=== PATIENT | male | born 1950 ===

== ENCOUNTER → 2017-04-16 | Outpatient (CLI) | payer MEDICARE ==
--- NOTE | 2017-04-16 19:39 | CONS ---
CONSULTATION Consultation done for sleep apnea. 66-year-old male patient, obese with a previous history of obstructive sleep apnea based on a study that was done at [facility] more than 5 years ago. The patient is being seen by Dr. Galvan regarding chronic pulmonary problems and he was asked to [facility] to be evaluated for his obstructive sleep apnea and see if his treatment is satisfactory and adequate. Of note, the patient has chronic hypoxic respiratory failure due to COPD and he has also a chronic right hemidiaphragmatic paralysis and he has a large abdominal/ventral hernias which have evolved after a major abdominal surgery for colonic perforation. In terms of his sleep apnea, the patient has been utilizing CPAP therapy for 5 years. Unfortunately sleep quality has been poor. He starts of sleeping in bed and he goes to bed around 11 o'clock and wakes up around 2 and goes to the living room where he sleeps in his recliner. While on the recliner, the patient does not utilize a CPAP machine. He uses CPAP machine only in bed. Based on the compliancy data that was available on his CPAP machine, he has been averaging around 2-1/2 hours of CPAP use per night. His pressure is at 16. His AHI is down to 3 while on treatment. He has around 16% large leaks around his Quattro FX full face mask. His current Sanders score is at 8. He seems to average around 5-6 hours of sleep and this is largely varies. He says sleep is very much fragmented. He admits to uses the CPAP between 2-3 hours on a nightly basis. He snores and at times he has been noted to quit breathing. He is more comfortable while sleeping on the recliner. He has very poor sleep hygiene. He also takes naps during the day and he sleeps at various hours and he takes 20-30 minute naps at various times during the day. No grinding of the teeth. No anxiety or panic attack. No nocturnal heartburn. He is chronically tired and sleepy and fatigued. His current Sanders score is 8. Noted in addition to his chronic hypoxic respiratory failure. The patient has chronic hypercapnia and I am sure this is multifactorial related to his obesity, COPD, and diaphragmatic paralysis. PAST MEDICAL HISTORY: 1. Chronic hypoxic respiratory failure. 2. Chronic hypercapnic respiratory failure. 3. Obesity. 4. COPD. 5. Congestive heart failure. 6. Large ventral hernia. 7. MARIXA. 8. Complicated colonic perforation requiring colectomy with diverting colostomy with subsequent reversal. 9. ITP. 10.Foot spurs. 11.Osteoarthritis. 12.Remote history of sarcoidosis. SURGICAL HISTORY: Tonsillectomy, abdominal surgery for colectomy and diverting colostomy with subsequent reversal. DRUG ALLERGIES: Not known. OUTPATIENT MEDICATION LIST: 1. Klor-Con 20 mEq once a day. 2. Norvasc 10 mg p.o. daily. 3. Losartan hydrochlorothiazide 100/25, 1 tab a day. 4. Lasix 40 mg p.o. daily. 5. Coreg 25 mg p.o. twice a day. 6. Osteo Bi-Flex. 7. Various other vitamin supplements. SOCIAL HISTORY: Nonsmoker, no history of alcohol, no history of IV drugs. FAMILY HISTORY: Negative for sleep apnea. REVIEW OF SYSTEMS: CONSTITUTIONAL: Chronic tiredness and sleepiness. He also has a limited amount of weight gain and has been unsuccessful in losing weight. HEENT: Negative for any sinus allergies. He is a mouth breather and he utilizes a full- face mask. PULMONARY: Chronic exertional dyspnea. No cough or sputum production. CARDIAC: No angina, no palpitations. He has CHF and chronic edema lower extremities. GI: Large ventral hernia. No nausea or vomiting. No nocturnal heartburn. : Negative for dysuria, frequency, urgency. MUSCULOSKELETAL: Negative for any joint deformities. The patient has arthritis and difficult mobility in gait. SKIN: Negative for open wounds, ulcers or cellulitis. NEURO: Negative for any focal neurological deficit. RHEUMATOLOGIC: Negative PSYCHIATRIC: Negative. ENDOCRINE: Negative. PHYSICAL EXAMINATION: BP is 135/81, pulse 84, respirations 16, temperature 98.3, saturation is 92% on 2-1/2 L of oxygen by nasal cannula. BMI 48.8. Sanders score is 8. Height is 68 inches, weight is 321. GENERAL APPEARANCE: Obese, calm, comfortable. HEENT: Short neck. Crowded posterior pharynx. There is no goiter or neck masses. Head is atraumatic, normocephalic. NECK: Mallampati class IV. LUNGS: Marked diminished breath sounds bilaterally especially in the right lung base. A few scattered expiratory wheezing. No rhonchi. HEART: Sounds are regular rate and rhythm. Normal S1, S2. No murmurs. ABDOMEN: Morbidly obese, soft, nontender. No direct tenderness or rebound or guarding. The patient has large ventral hernia over the anterior abdominal wall. Organs cannot be adequately palpated. No ascites. EXTREMITIES: +1 pitting edema. There is no cyanosis or clubbing. NEUROLOGIC: He is AOx3. No focal neurological deficits. PSYCHIATRIC: Appropriate to mood and affect. No anxiety. SKIN: Negative for any open ulcers, wounds or cellulitis. IMPRESSION: 1. Obstructive sleep apnea currently on a CPAP pressure of 10 cm of water. 2. Poor sleep hygiene with the sleep fragmentation and short periods of sleep with accumulated sleep hours of around 5-6 hours per night. 3. Chronic hypoxic respiratory failure. 4. Chronic hypercapnic respiratory failure. 5. Chronic obstructive pulmonary disease. 6. Right hemidiaphragmatic paralysis. 7. Congestive heart failure. 8. Large abdominal wall hernia. 9. Previous colectomy and diverting colostomy with subsequent reversal. 10.Osteoarthritis. 11.Remote history of sarcoidosis. 12.Remote history of ITP. PLAN: 1. For now CPAP therapy has been adequate and especially the patient's AHI is less than 5 while on treatment. However the patient is demonstrating all limited number of hours of sleep on the CPAP and as mentioned he has very poor sleep hygiene where he sleeps in different locations including the bedroom and in the living room on recliner and he takes naps during the day. Ideally the patient will need another PSG and titration treatment and he may qualify for either a BiPAP or AVAPS machine. The patient did not show any interest in the evaluation at this point. He wants to see if he can still use his current CPAP machine. Unfortunately the treatment itself has been of limited value knowing that his treatment hours are very short. I made an effort to change his mask interface knowing there was excessively grounds full-face mask. I gave him an AirFit F10 full-face mask. I encouraged him to use his CPAP throughout the night. Once ready, he may be switched to AVAPS machine which is more appropriate in this setting where he suffers from MARIXA and COPD in addition to restrictive lung disease secondary to his right diaphragmatic paralysis and large abdominal wall hernia and as such, the patient has a component of hypercapnia. An AVAPS machine would be ideal for him in treating both of his MARIXA and his underlying restrictive lung disease. This will be discussed further with Dr. Galvan on outpatient basis. MMODL / IJN: [id number] /
== END ==
LOC: SLEEP 13:30
PROVIDERS: ATTEND Internal Medicine Critical Care Medicine
DX: G47.33 Obstructive sleep apnea (adult) (pediatric) (principal); J96.12 Chronic respiratory failure with hypercapnia; J96.11 Chronic respiratory failure with hypoxia; J44.9 Chronic obstructive pulmonary disease, unspecified; I50.9 Heart failure, unspecified; K46.9 Unspecified abdominal hernia without obstruction or gangrene; M19.90 Unspecified osteoarthritis, unspecified site; Z93.3 Colostomy status; Z98.890 Other specified postprocedural states; Z79.899 Other long term (current) drug therapy
CPT/HCPCS: 99211